=== PATIENT | female | born 1955 | race Caucasian/White ===

== ENCOUNTER → 2023-11-09 11:04 | Outpatient (REF) | payer MEDICARE, OTHER, SELFPAY | LOC: HWWDC 11:04 | PROVIDERS: ATTENDING PHYSICIAN Nurse Practitioner; FAMILY PHYSICIAN Internal Medicine | DX: Z12.31 Encounter for screening mammogram for malignant neoplasm of breast (principal) | CPT/HCPCS: 77063; 77067 ==

== ENCOUNTER → 2024-04-08 13:29 | Outpatient (REF) | payer MEDICARE, OTHER, SELFPAY | LOC: HWRAD 13:29 | PROVIDERS: ATTENDING PHYSICIAN Surgery; FAMILY PHYSICIAN Internal Medicine | DX: N20.0 Calculus of kidney (principal) | CPT/HCPCS: 76775 ==

== ENCOUNTER → 2024-04-19 10:26 | Outpatient (REF) | payer MEDICARE, OTHER, SELFPAY | LOC: HWRAD 10:26 | PROVIDERS: ATTENDING PHYSICIAN Internal Medicine Gastroenterology; FAMILY PHYSICIAN Internal Medicine | DX: K21.9 Gastro-esophageal reflux disease without esophagitis (principal) | CPT/HCPCS: 76700 ==

== ENCOUNTER → 2024-05-07 06:18 | Day surgery (SDC) | payer MEDICARE, OTHER, SELFPAY | LOC: GI 06:18 | PROVIDERS: ATTENDING PHYSICIAN Internal Medicine Gastroenterology | DX: Z12.11 Encounter for screening for malignant neoplasm of colon (principal); Z80.0 Family history of malignant neoplasm of digestive organs; K57.50 Diverticulosis of both small and large intestine without perforation or abscess without bleeding; D12.3 Benign neoplasm of transverse colon; K63.5 Polyp of colon; R10.13 Epigastric pain; K31.7 Polyp of stomach and duodenum | CPT/HCPCS: 45385; 43239; 88305; 88342 ==

== ENCOUNTER 2024-08-11 11:10 | Emergency (ER) | payer MEDICARE, OTHER, SELFPAY ==
[2024-08-11 11:11] VITALS: BP 166/103
[2024-08-11] MEDS: TORADOL 30 MG IV (12:15)
[2024-08-11] MEDS: ZOFRAN 4 MG IV ×2 (12:15→14:55)
[2024-08-11] MEDS: NSS 1000 IV (12:16)
[2024-08-11] MEDS: DILAUDID 1 MG IV (12:16)
--- NOTE | 2024-08-11 12:22 | ED.GENMED ---
History of Present Illness
General
Chief Complaint: Abdominal Pain
Source: patient and family
Exam Limitations: none
Time Seen by Provider: 08/11/24 11:47
Nursing documentation reviewed up to this point in time: agreed with
History of Present Illness
History of Present Illness:
69-year-old female history of diverticulosis never had-itis apparently, also kidney stones, presents with left low back pain left lower abdominal pain with nausea onset a few days ago worsened today I evaluated her she was writhing in pain, nauseous
denies any fever denies chest pain or shortness of
Past History
Past History
ED Past Medical History: HTN and Other (Diagnosis of primary hyperparathyroidism)
ED Past Surgical History: and Gynecological
Social History
Tobacco: Non-smoker
Alcohol: None
Drug: None
Personal:
Living: with family
Employment: Employed
Family History
Family History: Other (Kidney stones in a brother and sister)
Review of Systems
Review of Systems
All Other Systems: Not applicable
Constitutional: Denies fever or fatigue
EENT: Reports no symptoms
Respiratory: Reports no symptoms
Cardiac: Reports no symptoms
ABD/GI: Reports abdominal pain, nausea and vomiting
: Reports flank pain
Musculoskeletal: Reports no symptoms
Skin: Reports no symptoms
Neurological: Reports no symptoms
Phy Exam
Physical Exam
Physical Exam:
Physical Exam
General: 69 female writhing in pain
Neck: No jaundice
Heart: s1/s2 regular rate and rhythm, no murmur. equal radial pulses.
Lungs: no acute respiratory distress. clear bilaterally
Abdomen: Tender in the left flank left lower
Neuro: alert and oriented. no focal neurological deficits
Skin: no rash
Psychiatric: well kept. interactive and cooperative
Extremities: no edema
Course
Orders/Labs/Results
Orders:
Orders
08/11/24 12:05
Complete Blood Count/With Diff Urgent
Comprehensive Metabolic Panel Urgent
Lipase Urgent
Urinalysis Reflex To Culture Urgent
Date Specimen was Collected: 08/11/24
Time Specimen was Collected: 12:03
Urine Microscopic Reflex Cult Urgent
08/11/24 12:11
0.9% Sodium Chloride 1000 ml [Nss] 1,000 ml IV BOLUS
HYDROmorphone [Dilaudid] 1 mg IV NOW STA
Ketorolac [Toradol] 30 mg IV NOW STA
Ondansetron Injectable [Zofran] 4 mg IV NOW STA
08/11/24 12:53
CT Abd/pel Without Iv Or Oral Urgent
Comment:
Reason For Exam: ;eft flakn pain
08/11/24 14:47
Ondansetron Injectable [Zofran] 4 mg IV NOW STA
Oxycodone/Acetaminophen [Percocet 5/325] 1 tablet PO NOW STA
Abnormal Lab Results
08/11/24
12:05
WBC 14.7 H 10^3/uL
(4.8-10.8)
MCH 31.1 H pg
(27.0-31.0)
Abs Immat Gran (auto) 0.1 H 10^3/uL
(0-0.05)
Absolute Neuts (auto) 12.0 H 10^3/uL
(1.4-6.5)
Absolute Monos (auto) 0.8 H 10^3/uL
(0.1-0.6)
Neutrophils % 81.6 H %
(42.2-75.2)
Lymphocytes % 12.3 L %
(20.5-51.1)
Calcium 10.3 H mg/dl
(8.4-10.2)
Urine Ketones 2+ A
(Negative)
Ur Occult Blood Reflex 4+ A
(Negative)
Leukocyte Esterase Rfl Trace A
(Negative)
Urine RBC 40-50 A /HPF
(0-2)
Urine Bacteria (Reflex) Few A
(Negative)
08/11/24 12:05
08/11/24 12:05
Vital Signs
Initial and Last Documented VS:
Initial Vital Signs
Temp Pulse Resp BP Pulse Ox
98.1 F 82 18 166/103 99
08/11/24 11:11 08/11/24 11:11 08/11/24 11:11 08/11/24 11:11 08/11/24 11:11
Last Documented Vital Signs
Temp Pulse Resp BP Pulse Ox
98.1 F 82 18 116/62 99
08/11/24 11:11 08/11/24 11:11 08/11/24 11:11 08/11/24 12:40 08/11/24 11:11
MDM/Problems Addressed
Differential Diagnosis Includes:
Ureteral stone, diverticular disease, ovarian pathology muscle strain
MDM/Problems Addressed:
Left lower pain
Chronic conditions affecting care:
Kidney stone prior gynecologic
Acute Exacerbation and/or Progression of Chronic Illness:
Kidney stone prior gynecologic surgery
*Radiology
Radiology exam reviewed: radiology read reviewed
*Pulse Oximetry
Patient hypoxic: no
*Microcomputer Support Specialist Interpretation
Rate: normal
Interpretation: normal
Heart Rate: 78
Rhythm: sinus
*Critical Care Note
Total Time (30-74mins, 75-104mins- exclusive of procedures): Not Applicable
Data Reviewed
Review of Other/Old Records Reveals: Labs and Records
Source: records and previous hospital records
Update Note
Update Note:
Update prior records briefly reviewed patient has had diverticulosis on prior colonoscopy and has had ureteral stones previously requiring operative intervention
[address] report noted
245, reviewed imaging and labs with patient she is pain-free now,
Appears stable for trial of passage ER for urology follow-up if any persistent pain fevers etc.
ED Attending Note
-
Portions of this chart may have been created with voice recognition software.� Occasional wrong word or��sound alike� substitutions may have occurred due to the inherent limitations of voice recognition software.
Discharge Plan
Departure
Patient Disposition: Home (Routine Discharge)
Date of Disposition: 08/11/24
Time of Disposition: 14:48
Patient with high blood pressure during this ER visit?: No
Condition: Good
Covid-19: Not Applicable
Discharge Problem:
Kidney stone on left side
Instructions: Kidney Stones (DC), Renal Colic (DC)
Prescriptions:
New
oxycodone-acetaminophen [Percocet] 5-325 mg tablet
1 tab PO Q4HPRN PRN (Reason: pain) Qty: 14 0RF
tamsulosin [Flomax] 0.4 mg capsule
0.4 mg PO HS PRN (Reason: kidney stone pain) Qty: 7 0RF
diclofenac sodium 50 mg tablet,delayed release (DR/EC)
50 mg PO Q12H PRN (Reason: Pain) Qty: 20 0RF
No Action
lisinopril 20 MG tablet
30 mg PO DAILY
famotidine 20 MG tablet
20 mg PO DAILY
tamsulosin 0.4 MG capsule
0.4 mg PO DAILY Qty: 7 0RF
diclofenac sodium 75 MG tablet,delayed release (DR/EC)
75 mg PO PRN PRN (Reason: pain)
Referrals:
Bulmaro Willams MD [Family Provider] -
Interventions
Interventions:
*Risk Screen - Suicide Last Done: 08/11/24 11:11
*General Assessment Last Done: 08/11/24 11:11
*Neglect/Abuse Screening Last Done: 08/11/24 11:11
ED- Fall Risk Assessment Last Done: 08/11/24 11:53
*ED COVID-19 Vaccine History Last Done: 08/11/24 11:11
SS-Jndyeq-Titdrnkxqh Assessment Last Done: 08/11/24 11:53
Discharge Date and Time
Print Language: SAO TOMEAN
[2024-08-11 12:24] LABS: % Basophils 0.4 % (0-2); % Eosinophils 0.1 % (0-6); % Immature Granulocytes 0.4 % (0-0.5); % Lymphocytes 12.3 % (20.5-51.1); % Monocytes 5.2 % (1.7-9.3); % Neutrophils 81.6 % (42.2-75.2); Absolute Basophils 0.1 10^3/uL (0-0.2); Absolute Immature Granulocytes 0.1 10^3/uL (0-0.05); Absolute Lymphocytes 1.8 10^3/uL (1.2-3.4); Absolute Monocytes 0.8 10^3/uL (0.1-0.6); Hematocrit 43.7 % (37.0-47.0); Hemoglobin 15.1 g/dL (12.0-16.0); Mean Corp Hgb Conc. 34.6 g/dL (33.0-37.0); Mean Corpuscular Hgb 31.1 pg (27.0-31.0); Mean Corpuscular Volume 89.9 fL (81.0-99.0); Mean Platelet Volume 9.3 fL (7.4-10.4); Nucleated Red Blood Cells % 0 %; Platelet Count 294 10^3/uL (130-400); Red Blood Cell Count 4.86 10^6/uL (4.20-5.40); Red Cell Dist. Width 12.1 % (11.5-14.5); White Blood Cell Count 14.7 10^3/uL (4.8-10.8)
[2024-08-11 12:33] LABS: ALT (SGPT) 21 U/L (0-35); AST (SGOT) 31 U/L (14-36); Albumin 4.5 g/dl (3.5-5.0); Alkaline Phosphatase 103 U/L (38-126); Blood Urea Nitrogen 14 mg/dl (7-17); Calcium 10.3 mg/dl (8.4-10.2); Carbon Dioxide 23 mmol/L (22-30); Chloride 102 mmol/L (98-107); Glucose 99 mg/dl (70-99); Lipase 87 U/L (23-300); Sodium 135 mmol/L (135-145); Total Bilirubin 0.5 mg/dl (0.2-1.3); Total Protein 7.1 g/dl (6.3-8.2); eGFR > 60.00
[2024-08-11 12:40] VITALS: BP 116/62
[2024-08-11 13:27] LABS: Urine Albumin Negative (Neg - Trace); Urine Bilirubin Negative (Negative); Urine Character Clear (Clear); Urine Color Yellow; Urine Glucose Negative (Negative); Urine Ketone 2+ (Negative); Urine Leukocyte Trace (Negative); Urine Nitrite Negative (Negative); Urine Occult Blood 4+ (Negative); Urine Urobilinogen Negative (Neg - 1+)
[2024-08-11 13:39] LABS: Urine Mucus Few; Urine Squamous Cell 16-20 /LPF (Few)
[2024-08-11 13:40] LABS: Urine Calcium Oxalate Crystals Seen
[2024-08-11 13:41] LABS: Urine Bacteria Few (Negative); Urine Red Blood Cell 40-50 /HPF (0-2)
[2024-08-11] MEDS: PERCOCET 5/325 1 TABLET PO (14:52)
== END 2024-08-11 15:16 | disposition home or self-care (01) ==
LOC: EMR 11:10
PROVIDERS: EMERGENCY PHYSICIAN Emergency Medicine; FAMILY PHYSICIAN Internal Medicine
DX: N13.2 Hydronephrosis with renal and ureteral calculous obstruction (principal); I10 Essential (primary) hypertension
CPT/HCPCS: 96374; 96375; 96376; 96361; 99284; 74176; 80053; 81003; 81015; 83690; 85025

== ENCOUNTER → 2024-09-18 13:02 | Outpatient (REF) | payer MEDICARE, OTHER, SELFPAY | LOC: DHSLP 13:02 | PROVIDERS: ATTENDING PHYSICIAN Internal Medicine | DX: G47.33 Obstructive sleep apnea (adult) (pediatric) (principal) | CPT/HCPCS: 95800 ==

== ENCOUNTER → 2024-11-11 11:29 | Outpatient (REF) | payer MEDICARE, OTHER, SELFPAY | LOC: HWRAD 11:29 | PROVIDERS: ATTENDING PHYSICIAN Internal Medicine | DX: Z12.31 Encounter for screening mammogram for malignant neoplasm of breast (principal); M81.0 Age-related osteoporosis without current pathological fracture | CPT/HCPCS: 77063; 77067; 77080 ==

== ENCOUNTER → 2025-02-25 13:26 | Outpatient (REF) | payer MEDICARE, OTHER, SELFPAY | LOC: RCS 13:26 | PROVIDERS: ATTENDING PHYSICIAN Internal Medicine | DX: R07.89 Other chest pain (principal) | CPT/HCPCS: 93017; 93350 ==